=== PATIENT | male | born 1965 | race African-American/Black ===

== ENCOUNTER → 2020-05-22 12:29 | Outpatient (BNVA) | payer SELFPAY | PROVIDERS: PCP Internal Medicine; Referring Provider Internal Medicine; Visit Provider Internal Medicine Cardiovascular Disease | DX: I48.0 Paroxysmal atrial fibrillation (principal); I10 Essential (primary) hypertension; Z79.01 Long term (current) use of anticoagulants | CPT/HCPCS: 99214 ==

== ENCOUNTER → 2020-07-18 08:17 | Outpatient (BNVA) | payer BC, SELFPAY | PROVIDERS: PCP Internal Medicine; Referring Provider Internal Medicine; Visit Provider Nurse Practitioner Family | DX: Z13.89 Encounter for screening for other disorder (principal) ==

== ENCOUNTER → 2020-07-26 09:47 | Outpatient (REF) | payer BC, SELFPAY | LOC: HO.SL 09:47 | PROVIDERS: PCP Internal Medicine; Visit Provider Nurse Practitioner Family | DX: G47.33 Obstructive sleep apnea (adult) (pediatric) (principal); E78.5 Hyperlipidemia, unspecified; I48.0 Paroxysmal atrial fibrillation | CPT/HCPCS: 95806 ==

== ENCOUNTER → 2020-09-12 10:59 | Outpatient (BNVA) | payer BC, SELFPAY | PROVIDERS: PCP Internal Medicine; Visit Provider Nurse Practitioner Family ==

== ENCOUNTER → 2020-12-07 09:11 | Outpatient (BNVA) | payer BC, SELFPAY | PROVIDERS: PCP Internal Medicine; Visit Provider Internal Medicine Cardiovascular Disease | DX: I48.0 Paroxysmal atrial fibrillation (principal); I10 Essential (primary) hypertension | CPT/HCPCS: 93005 ==

== ENCOUNTER → 2021-02-13 10:47 | Outpatient (BNVA) | payer BC, SELFPAY | PROVIDERS: PCP Internal Medicine; Visit Provider Nurse Practitioner Family ==

== ENCOUNTER → 2021-05-10 15:21 | Outpatient (BNVA) | payer SELFPAY | PROVIDERS: PCP Internal Medicine; Visit Provider Internal Medicine | DX: Z02.79 Encounter for issue of other medical certificate (principal) ==

== ENCOUNTER → 2021-06-13 15:13 | Outpatient (BNVA) | payer BC, SELFPAY | PROVIDERS: PCP Internal Medicine; Visit Provider Internal Medicine Cardiovascular Disease ==

== ENCOUNTER → 2021-09-11 14:07 | Outpatient (BNVA) | payer BC, SELFPAY | PROVIDERS: PCP Internal Medicine; Visit Provider Surgery ==

== ENCOUNTER 2021-10-11 13:46 | Outpatient (REF) | payer BC, SELFPAY ==
[2021-10-11 13:58] VITALS: BMI 37.7
[2021-10-11 14:00] VITALS: BP 151/88; PULSE 71; RESP 16; TEMP 37.1; O2SAT 97
[2021-10-11 14:40] VITALS: BP 129/85; PULSE 79; RESP 16; O2SAT 97
--- NOTE | 2021-10-12 11:04 | P.OP_ITS ---
Operative Note Operative Note Date of Service: 10/12/21 Narrative: Preoperative diagnosis: Lipoma posterior right leg Postoperative diagnosis: Same Procedure: Excision of lipoma posterior right leg Surgeon: Ray Finney MD Agricultural Sciences Professor: No physician Anesthesia: Local Indications for procedure: Enlarging soft tissue mass of the posterior right leg suggestive of a lipoma Operative findings: Large lipoma measuring approximately 6 cm in diameter. Specimen: Lipoma right posterior leg Estimated blood loss: 5 mL Complications: None Procedure details: Patient was brought to the minor surgery suite placed in a prone position. The site of surgery was confirmed by the patient in the posterior right leg. After assuring informed consent, the skin was prepped with Betadine and draped in a sterile fashion. Local anesthesia was then infiltrated around the lipoma. An oblique incision was made directly over the lipoma along the natural skin creases. Incision was carried down to the lipoma. Sharp dissection was used to excise the lipoma circumferentially. The lesion was passed off the table and sent to pathology for further examination. After assuring adequate hemostasis dermis was reapproximated using interrupted 3-0 Polysorb sutures. Skin was closed using a running subcuticular 4-0 Polysorb suture. Steri-Strips 2 x 2 gauze and Tegaderm were then applied. The patient tolerated the procedure well. He was discharged to home in stable condition.
== END 2021-10-11 13:47 | disposition home or self-care (01) ==
LOC: HO.MS 13:46
PROVIDERS: PCP Internal Medicine; Visit Provider Surgery
PROC: (CPT 11406; principal; 2021-10-11 14:00)
DX: D17.23 Benign lipomatous neoplasm of skin and subcutaneous tissue of right leg (principal)
CPT/HCPCS: 11406; 88304

== ENCOUNTER → 2021-10-18 16:12 | Outpatient (BNVA) | payer BC, SELFPAY | PROVIDERS: PCP Internal Medicine; Visit Provider Surgery | DX: Z13.89 Encounter for screening for other disorder (principal) ==

== ENCOUNTER → 2022-04-22 09:19 | Outpatient (BNVA) | payer SELFPAY | PROVIDERS: PCP Internal Medicine; Visit Provider Physician Assistant Medical | DX: Z02.79 Encounter for issue of other medical certificate (principal) ==

== ENCOUNTER → 2022-06-17 15:31 | Outpatient (BNVA) | payer BC, SELFPAY | PROVIDERS: PCP Internal Medicine; Visit Provider Internal Medicine Cardiovascular Disease | DX: R94.31 Abnormal electrocardiogram [ECG] [EKG] (principal) | CPT/HCPCS: 93005; 99212 ==

== ENCOUNTER → 2023-04-18 12:08 | Outpatient (BNVA) | payer SELFPAY | PROVIDERS: PCP Internal Medicine; Visit Provider Internal Medicine | DX: Z02.79 Encounter for issue of other medical certificate (principal) ==

== ENCOUNTER 2023-07-02 11:06 | Outpatient (AMB) | payer BC, SELFPAY ==
--- NOTE | 2023-07-02 11:09 | A.OFFVIS_ITS ---
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 He is status post cardioversion. He was referred for ablation but given significant improvement In symptoms and ejection fraction after cardioversion, ablation was not considered. He has been taken off the amiodarone in the past. He was taken off the Eliquis by the electrophysiology team. Previously was referred to sleep.? He was noticed to have mild sleep apnea.? He had decided to undergo weight loss rather than using CPAP. He has been doing well.? He denies any shortness of breath.? No palpitations.? Blood pressure control is good.? He has been off Lasix. Complained of 1 episode of chest pain few weeks ago. He said it was a like a pinching sensation on the right her chest at rest. He works [place] the [place] and lifts heavy weights her leg age and has no symptoms at work. 07/02/2023: He returns for follow-up. Matt stanton has been doing well. Blood pressure in the office is elevated. He previously had sleep apnea but he is saying that he lost weight and was told that his sleep apnea is improved. He has been experiencing headaches in the morning every day. He is getting workup for that. No palpitations. EKG in the office is showing sinus rhythm. [facility] Medical History Hyperlipidemia Hypertension Surgical History History of cardioversion (01/26/19) History of vasectomy (01/13/14) History of colonoscopy History of nasal polypectomy Hx of cholecystectomy (07/16/04) Hx of arthroscopy of knee Family History Father No problems noted. Mother No problems noted. Brother Cardiomyopathy Social History Alcohol intake: never Patient Tobacco Use Status: Never used Tobacco Review of Systems Const Denies chills, Denies fatigue, Denies fever(s), Denies frequent falls, Denies weakness, Denies weight gain and Denies weight loss ENT Denies dizziness Card Denies chest pain, Denies leg edema, Denies lightheadedness, Denies palpitations, Denies dyspnea, Denies dyspnea on exertion, Denies orthopnea and Denies other (loss of consciousness) Resp Denies cough, Denies dyspnea and Denies dyspnea on exertion GI Denies hematochezia and Denies change in stool character Musc Denies abnormal gait, Denies muscle weakness, Denies numbness, Denies radiating pain into limb and Denies tingling Neuro Denies abnormal gait, Denies dizziness, Denies frequent falls, Denies numbness, Denies tingling and Denies weakness Endo Denies fatigue and Denies palpitations Physical Exam Vital Signs: Last Vital Signs Pulse 69 07/02/23 11:22 BP 140/80 H 07/02/23 11:22 BMI result Body Mass Index 37.0 GENERAL APPEARANCE: in no acute distress, well developed, well nourished. NECK/THYROID: no carotid bruit, no jugular venous distention. SKIN: no suspicious lesions, warm and dry. HEART: no murmurs, regular rate and rhythm, S1, S2 normal. LUNGS: clear to auscultation bilaterally. ABDOMEN: normal, bowel sounds present, soft, nontender, nondistended. EXTREMITIES: no clubbing, cyanosis, or edema. PERIPHERAL PULSES: equal. NEUROLOGIC: nonfocal, alert and oriented. PSYCH: mood/affect full range. Office Procedures EKG Details: Sinus rhythm 69 beats per minute, possible left atrial enlargement, borderline ECG, QTC 402 milliseconds. [id number], Complete Assessment & Plan Assessment & Plan (1) PAF (paroxysmal atrial fibrillation): Code(s): I48.0 - Paroxysmal atrial fibrillation (2) Hyperlipidemia: Code(s): E78.5 - Hyperlipidemia, unspecified (3) Hypertension: Code(s): I10 - Essential (primary) hypertension Plan Pleasant 58-year-old gentleman who is here for follow-up. He has background of paroxysmal atrial fibrillation. He was cardioverted and since then has not developed any further episodes of atrial fibrillation. Blood pressure is elevated. He is currently taking lisinopril 5 mg and Toprol- XL 25 mg daily. Increasing lisinopril to 10 mg daily. Will bring him back in few weeks for blood pressure check with the nurse. If blood pressure continues to be elevated then will titrate lisinopril further. Given frequent headaches with no obvious cause and hypertension along with obesity/snoring. I am referring him to Sleep Medicine for further assessment as he previously had keep apnea but but Ma loss he was told that he does not need CPAP mask. We will check fasting lipid panel for his background of hyperlipidemia. Thank you for allowing me to participate in the care of your patient. Please feel free to contact me if you have any questions. Orders: Orders Lipid Panel Today E78.5 - Hyperlipidemia, unspecified Referrals Sleep Medicine Referral G47.33 - Obstructive sleep apnea (adult) (pediatric) Medications: New lisinopril 10 mg PO DAILY 90 tabs 3RF Discontinued lisinopril Discontinued Reason: Doctor's Order 5 mg PO DAILY 90 tabs 3RF Coding Level of Care Code Est Pt Level 4 (78934) Diagnoses PAF (paroxysmal atrial fibrillation) I48.0 Hyperlipidemia E78.5 Hypertension I10 CPT Codes EKG - CPT: 23423-[id number], Complete ([id number])
[2023-07-02 11:22] VITALS: BP 140/80; PULSE 69; BMI 37.0
== END 2023-07-02 11:57 | disposition home or self-care (01) ==
PROVIDERS: PCP Nurse Practitioner Family; Visit Provider Internal Medicine Cardiovascular Disease
DX: I48.0 Paroxysmal atrial fibrillation (principal); E78.5 Hyperlipidemia, unspecified; I10 Essential (primary) hypertension
CPT/HCPCS: 93010; 99214

== ENCOUNTER → 2023-07-02 11:06 | Outpatient (BNVA) | payer BC, SELFPAY | PROVIDERS: PCP Nurse Practitioner Family; Visit Provider Internal Medicine Cardiovascular Disease | DX: I48.0 Paroxysmal atrial fibrillation (principal); E78.5 Hyperlipidemia, unspecified; I10 Essential (primary) hypertension; Z79.899 Other long term (current) drug therapy | CPT/HCPCS: 93005 ==

== ENCOUNTER 2023-07-07 10:36 | Outpatient (REF) | payer BC, SELFPAY ==
[2023-07-07 12:14] LABS: Cholesterol 213 mg/dL (<200); HDL Cholesterol 42 mg/dL (>40); LDL Cholesterol Calculated 157 mg/dL (<100); Triglycerides 72 mg/dL (<150)
== END 2023-07-07 10:37 | disposition home or self-care (01) ==
LOC: HO.LAB 10:36
PROVIDERS: Visit Provider Internal Medicine Cardiovascular Disease
DX: E78.5 Hyperlipidemia, unspecified (principal)
CPT/HCPCS: 36415; 80061

== ENCOUNTER → 2023-07-16 15:32 | Outpatient (BNVA) | payer BC, SELFPAY | PROVIDERS: PCP Nurse Practitioner Family; Visit Provider Internal Medicine Cardiovascular Disease ==

== ENCOUNTER 2023-10-14 12:54 | Outpatient (AMB) | payer BC, SELFPAY ==
--- NOTE | 2023-10-14 13:04 | MHC.OFFVIS ---
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 Having trouble sleeping. Allergies No Known Allergies [No Known Allergies*] Allergy (Verified 10/14/23 13:11) HPI HPI Comments History of Present Illness Details 58 y/o male patient with mhx of HTN, and afib presents for sleep consultation. Pt reports he was diagnosed with HENRY about 15 years. He was treated with CPAP, but stopped using CPAP after lost 30 lb. He had a repeat sleep study done in 2020 and the result was mild degree of sleep apnea. Pt continues to endorse snoring, nocturia, non refreshing sleep with daytime tiredness. Pt reports irregular sleep schedule due to work schedule. 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 Sleep questionnaire: Have you ever been diagnosed with a sleep disorder? Yes, HENRY. Have you ever had a sleep study in the past? Yes. Have you ever been treated for a sleep disorder? Yes, CPAP. Do you take medications for a sleep disorder? No. Do you snore? Yes. Do you wake up gasping at night? No. Do you have episodes of apneas? Yes. If yes, are they witnessed? Yes. Do you have episodes of nocturnal chest pain or dyspnea? Can have palpitation, but not often. Do you have difficulty initiating sleep? No. Do you have difficulty maintaining sleep? Yes, 4-6 hrs. Do you wake up tired? Yes. Do you have headaches upon awakening? Occasionally. Do you wake up with dry mouth or throat? No. Do you have GERD? No. Do you have nocturia? Yes. Do you have nocturnal leg cramps? No. Do you have symptoms of restless legs? Once in a while. Do you act out your dreams? No. Sleep hygiene questionnaire: What is your usual sleep routine? Usual bedtime is at 8:30- 9 pm; Usual wakeup time is at 2-4 am. Do you take naps? Yes. Is your sleep environment cool, dark, and quiet? Yes. Do you exercise? Not now. Do you take caffeine or other stimulants? Not everyday. Do you use electronics in bed? Yes, sometimes. What is your work schedule? 4 am to 11 am. Hypersomnolence questionnaire: Do you have daytime tiredness or fatigue? Yes. Do you easily fall asleep when inactive? Not normally. Have you ever had episodes of sudden weakness? No. Have you ever had episodes of sudden weakness associated with strong emotions? No. PFSH Medical History Hyperlipidemia Hypertension Surgical History History of cardioversion (01/26/19) History of vasectomy (01/13/14) History of colonoscopy History of nasal polypectomy Hx of cholecystectomy (07/16/04) Hx of arthroscopy of knee Family History Father No problems noted. Mother No problems noted. Brother Cardiomyopathy Social History Alcohol intake: never Patient Tobacco Use Status: Never used Tobacco Review of Systems Const All systems reviewed & are unremarkable except as noted in HPI and below Physical Exam Vital Signs: Last Vital Signs Pulse 64 10/14/23 13:11 BP 134/80 10/14/23 13:11 Pulse Ox 94 10/14/23 13:11 Oxygen Delivery Method Room Air 10/14/23 13:11 BMI result Body Mass Index 37.1 Const General: cooperative and tired appearing Nutritional Appearance: obese Orientation/consciousness: patient oriented x3 Limitations: no limitations Neck Neck: Yes full ROM and Yes supple Resp Effort & Inspection: normal respiratory effort and able to speak in complete sentences Neuro General: patient oriented x3, gait normal and moves all extremities Cranial nerves: Yes CN's II-XII intact bilaterally Cognition (Neuro): normal cognition Gait exam (Neuro): Normal gait present Motor exam (neuro): 5/5 motor strength present throughout Psych Appearance: grossly normal Mental Status: mental status grossly normal Speech and movement: Normal speech and movement present Affect: normal affect Attitude: cooperative Assessment & Plan Assessment & Plan (1) Obstructive sleep apnea: Comment: HST (07/26/20 at [facility] [place]) AHI 9.7/hr, O2 edna 86%. Code(s): G47.33 - Obstructive sleep apnea (adult) (pediatric) (2) Daytime sleepiness: Code(s): R40.0 - Somnolence Plan Pt is advised to undergo home sleep study to assess for sleep apnea. Will f/u with pt after study to discuss results and appropriate treatment options. Pt to call with any worsening concerns or questions. Orders: Orders RT home sleep study Today G47.33 - Obstructive sleep apnea (adult) (pediatric), I48.0 - Paroxysmal atrial fibrillation Coding Level of Care Code New Pt Level 3 (98632) Diagnoses Obstructive sleep apnea G47.33 Daytime sleepiness R40.0
[2023-10-14 13:11] VITALS: BP 134/80; PULSE 64; O2SAT 94; BMI 37.1
== END 2023-10-14 13:36 | disposition home or self-care (01) ==
LOC: HO.HSMS 12:55
PROVIDERS: PCP Nurse Practitioner Family; Visit Provider Nurse Practitioner Family
DX: G47.33 Obstructive sleep apnea (adult) (pediatric) (principal); R40.0 Somnolence
CPT/HCPCS: 99203

== ENCOUNTER → 2023-10-14 12:54 | Outpatient (BNVA) | payer BC, SELFPAY | PROVIDERS: PCP Nurse Practitioner Family; Visit Provider Nurse Practitioner Family ==

== ENCOUNTER → 2023-11-25 15:56 | Outpatient (REF) | payer BC, SELFPAY ==
--- NOTE | 2023-11-25 15:59 | HM_ITS ---
Conclusion: 1. Patient was monitored for total period of 3 days 2. Baseline was normal sinus rhythm with average heart of 76 beats per minute 3. No significant pauses noted 4. Occasional PACs noted with total burden of 0.4% 5. 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
--- NOTE | 2023-11-25 15:59 | ECG_ITS ---
Test Reason : paf Blood Pressure : / mmHG Vent. Rate : 062 BPM Atrial Rate : 062 BPM P-R Int : 202 ms QRS Dur : 092 ms QT Int : 410 ms P-R-T Axes : 059 049 032 degrees QTc Int : 416 ms Normal sinus rhythm Possible Left atrial enlargement Borderline ECG When compared with ECG of 27-JAN-2019 06:45, Nonspecific T wave abnormality no longer evident in Anterior leads QT has shortened Referred By: Jluis Bishop Electronically Signed By:HENRIETTA BENITES MD
== END ==
LOC: HO.CARD 15:56
PROVIDERS: Visit Provider Nurse Practitioner Family
DX: I48.0 Paroxysmal atrial fibrillation (principal); G47.33 Obstructive sleep apnea (adult) (pediatric); E78.5 Hyperlipidemia, unspecified
CPT/HCPCS: 93005; 93242

== ENCOUNTER → 2023-11-25 15:59 | Outpatient (BNV) | payer BC, SELFPAY | PROVIDERS: Visit Provider Internal Medicine Cardiovascular Disease | DX: I49.1 Atrial premature depolarization (principal) | CPT/HCPCS: 93010; 93244 ==

== ENCOUNTER 2023-12-08 10:53 | Outpatient (AMB) | payer BC, SELFPAY ==
--- NOTE | 2023-12-08 11:00 | A.OFFVIS_ITS ---
Vital Signs 12/08/23 11:07 Height 6 ft 7 in Weight 327 lb 6 oz BMI 36.9 BP 142/80 H Blood Pressure Location Rt brachial Position Sitting Pulse 59 Pulse Source Pulse Oximeter Pulse Oximetry (%) 98 Oxygen Delivery Method Room Air Intake Visit Reasons: follow up HENRY - Conf w/address Intake Note: Patient presents for f/u HENRY. Allergies No Known Allergies [No Known Allergies*] Allergy (Verified 12/08/23 11:05) Medication List - Last Reconciled 12/08/23 by ORESTES Delgadillo lisinopril 10 mg PO DAILY metoprolol succinate ER 25 mg PO DAILY rosuvastatin 40 mg PO DAILY sildenafil 100 mg PO DAILY PRN HPI Comments Details: 58-yr-old male presents for f/u visit. Pt denies any significant interval medical changes. Pt has HST, which showed He still have episodes of snoring, SOB and chest pain at nights. He had polyps removed about 10 yrs ago. He wakes up with headache frequently. His headaches are mild-moderate, but can be a monster frontal pressure, if more severe throbbing a/w photophobia, phonophobia. Takes Excedrin migraine- sometimes works, sometimes does not help. The headache was daily, but since his Lisinopril was increased, the headaches are not daily. Has had 5 migraine days in the last month. He is trying to exercise more regularly. 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 [facility] Medical History Hyperlipidemia Hypertension Surgical History History of cardioversion (01/26/19) History of vasectomy (01/13/14) History of colonoscopy History of nasal polypectomy Hx of cholecystectomy (07/16/04) Hx of arthroscopy of knee Family History (Updated 12/08/23 @ 11:06 by Paulette Davidson CMA) Father Heart failure Mother No problems noted. Brother Cardiomyopathy Social History Alcohol intake: never Patient Tobacco Use Status: Never used Tobacco Physical Exam Vital Signs: Last Vital Signs Pulse 59 12/08/23 11:07 BP 142/80 H 12/08/23 11:07 Pulse Ox 98 12/08/23 11:07 Oxygen Delivery Method Room Air 12/08/23 11:07 BMI result Body Mass Index 36.9 Const General: cooperative and no acute distress Orientation/consciousness: patient oriented x3 Resp Effort & Inspection: normal respiratory effort and able to speak in complete sentences Neuro General: patient oriented x3 Cranial nerves: Yes CN's II-XII intact bilaterally Cognition (Neuro): normal cognition Psych Appearance: grossly normal Mental Status: mental status grossly normal Speech and movement: Normal speech and movement present Affect: normal affect Attitude: cooperative Assessment & Plan Assessment & Plan (1) Obstructive sleep apnea: Comment: HST (07/26/20 at [facility] [place]) AHI 9.7/hr, O2 edna 86%. HST (11/25/2023) AHI 12.1/hr w/ O2 edna 76%. Code(s): G47.33 - Obstructive sleep apnea (adult) (pediatric) Category: Medical (2) Migraine without aura: Code(s): G43.009 - Migraine without aura, not intractable, without status migrainosus Category: Medical Plan Reviewed HST, showed AHI 12.1/hr w/ O2 edna 76% (SpO2 < 90% x's 12.7 min and < 88% x's 7.2 min of a 262 min study). Pt advsied to start APAP 5-20 cmH2O w/ EPR 3- use nightly > 4 hrs- in hopes this reduces episodes of nocturnal snoring, SOB, chest pains. Pt would prefer to use a nasal pillow type mask. For acute migraine transport: Start Nurtec ODT 75mg qd prn. Minimize Excedrin use. Acute migraine tx contraindications- All triptans d/t paroxysmal A-fib, HTN, HLD. For migraine prevention: Continue Lisinopril and Amlodipine- per Cardiology. f/u in 6 months or sooner prn. Medications: New rimegepant (Nurtec ODT) 75 mg PO ONCE 30 days PRN 16 tabs 3RF migraine headache MDD 1 tab Coding Level of Care Code Est Pt Level 4 (52939) Diagnoses Obstructive sleep apnea G47.33 Migraine without aura G43.009
[2023-12-08 11:07] VITALS: BP 142/80; PULSE 59; O2SAT 98; BMI 36.9
== END 2023-12-08 11:55 | disposition home or self-care (01) ==
PROVIDERS: PCP Nurse Practitioner Family; Visit Provider Nurse Practitioner Family
DX: G47.33 Obstructive sleep apnea (adult) (pediatric) (principal); G43.009 Migraine without aura, not intractable, without status migrainosus
CPT/HCPCS: 99214

== ENCOUNTER → 2023-12-08 10:53 | Outpatient (BNVA) | payer BC, SELFPAY | PROVIDERS: PCP Nurse Practitioner Family; Visit Provider Nurse Practitioner Family | DX: G47.33 Obstructive sleep apnea (adult) (pediatric) (principal); I48.0 Paroxysmal atrial fibrillation ==

== ENCOUNTER 2024-06-30 10:20 | Outpatient (AMB) | payer BC, SELFPAY ==
[2024-06-30 10:21] VITALS: BP 140/70; PULSE 106; BMI 37.3
--- NOTE | 2024-06-30 10:21 | A.OFFVIS_ITS ---
Vital Signs 06/30/24 10:21 Height 6 ft 7 in Weight 331 lb 9.204 oz BMI 37.3 BP 140/70 H Blood Pressure Location Rt brachial Position Sitting Pulse 106 H Pulse Source Monitor Intake Visit Reasons: overdue f/up- possible Afib. 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 He is status post cardioversion. He was referred for ablation but given significant improvement In symptoms and ejection fraction after cardioversion, ablation was not considered. He has been taken off the amiodarone in the past. He was taken off the Eliquis by the electrophysiology team. Previously was referred to sleep.? He was noticed to have mild sleep apnea.? He had decided to undergo weight loss rather than using CPAP. He has been doing well.? He denies any shortness of breath.? No palpitations.? Blood pressure control is good.? He has been off Lasix. Complained of 1 episode of chest pain few weeks ago. He said it was a like a pinching sensation on the right her chest at rest. He works [place] the [place] and lifts heavy weights her leg age and has no symptoms at work. 07/02/2023: He returns for follow-up. He has been doing well. Blood pressure in the office is elevated. He previously had sleep apnea but he is saying that he lost weight and was told that his sleep apnea is improved. He has been experiencing headaches in the morning every day. He is getting workup for that. No palpitations. EKG in the office is showing sinus rhythm. 06/30/2024: He is here for follow-up. He has been feeling fatigued for 5 weeks. He apparently went to his primary care physician and EKG confirmed atrial fibrillation he was sent back to us. EKG in the office is showing atrial fibrillation. He is getting tired easily. Denying any shortness of breath. No PND or orthopnea. Currently not on anticoagulation. [facility] Medical History Hyperlipidemia Hypertension Surgical History History of cardioversion (01/26/19) History of vasectomy (01/13/14) History of colonoscopy History of nasal polypectomy Hx of cholecystectomy (07/16/04) Hx of arthroscopy of knee Family History Father Heart failure Mother No problems noted. Brother Cardiomyopathy Social History Alcohol intake: never Patient Tobacco Use Status: Never used Tobacco Review of Systems Const Denies chills, Denies fatigue, Denies fever(s), Denies frequent falls, Denies weakness, Denies weight gain and Denies weight loss ENT Denies dizziness Card Denies chest pain, Denies leg edema, Denies lightheadedness, Denies palpitations, Denies dyspnea and Denies dyspnea on exertion Resp Denies cough, Denies dyspnea and Denies dyspnea on exertion GI Denies hematochezia Musc Denies abnormal gait, Denies muscle weakness, Denies numbness, Denies radiating pain into limb and Denies tingling Neuro Denies abnormal gait, Denies dizziness, Denies frequent falls, Denies numbness, Denies tingling and Denies weakness Endo Denies fatigue and Denies palpitations Physical Exam Vital Signs: Last Vital Signs Pulse 106 H 06/30/24 10:21 BP 140/70 H 06/30/24 10:21 BMI result Body Mass Index 37.3 GENERAL APPEARANCE: in no acute distress, well developed, well nourished. NECK/THYROID: no carotid bruit, + jugular venous distention. SKIN: no suspicious lesions, warm and dry. HEART: no murmurs, irregular rate and rhythm, S1, S2 normal. LUNGS: clear to auscultation bilaterally. ABDOMEN: normal, bowel sounds present, soft, nontender, nondistended. EXTREMITIES: no clubbing, cyanosis, or edema. PERIPHERAL PULSES: equal. NEUROLOGIC: nonfocal, alert and oriented. PSYCH: mood/affect full range. Office Procedures EKG Details: Atrial fibrillation 106 beats per minute, rightward axis, QTC 456 milliseconds. [id number], Complete Assessment & Plan Assessment & Plan (1) PAF (paroxysmal atrial fibrillation): Code(s): I48.0 - Paroxysmal atrial fibrillation Category: Medical (2) Hypertension: Code(s): I10 - Essential (primary) hypertension Category: Medical Plan [age] year gentleman who is here for follow-up. He has known history of atrial fibrillation and tachycardia induced cardiomyopathy. Previously was cardioverted and was on amiodarone and anticoagulation and was referred to electrophysiology for ablation but given the fact that he was doing so well and had no recurrent atrial fibrillation episodes decision was made not to do ablation. His Eliquis was stopped. He was also taken off amiodarone. He had done well for few years and more recently started developing some fatigue and went to primary care physician where EKG confirmed atrial fibrillation. Clinically he appears to be mildly overloaded although he is denying any significant symptoms. He previously had cardiomyopathy when he developed atrial fibrillation. This is obviously a concern for him. I will arrange an urgent echocardiogram for him to assess LV function. Starting him on Eliquis 5 mg twice a day. Increasing metoprolol to 50 mg daily. Our plan will be to perform a CHRISTIANE cardioversion on him by next week. As he gets out of atrial fibrillation I will start him back on amiodarone and refer him back to electrophysiology for ablation. Thank you for allowing me to participate in the care of your patient. Please feel free to contact me if you have any questions. Orders: Orders CA echo transthoracic complete Today I48.0 - Paroxysmal atrial fibrillation Cardioversion with CHRISTIANE Today I48.0 - Paroxysmal atrial fibrillation CA echo transesophageal Today I48.0 - Paroxysmal atrial fibrillation Medications: New apixaban 5 mg PO BID 120 tabs 3RF Changed From metoprolol succinate ER 25 mg PO DAILY 90 tabs 2RF To metoprolol succinate ER 50 mg (2 x 25 mg) PO DAILY 90 tabs 2RF Coding Level of Care Code Est Pt Level 5 (25801) Diagnoses PAF (paroxysmal atrial fibrillation) I48.0 Hypertension I10 CPT Codes EKG - CPT: 67207-[id number], Complete ([id number])
== END 2024-06-30 11:27 | disposition home or self-care (01) ==
LOC: HO.HCS 10:20
PROVIDERS: PCP Nurse Practitioner Family; Visit Provider Internal Medicine Cardiovascular Disease
DX: I48.0 Paroxysmal atrial fibrillation (principal); I10 Essential (primary) hypertension; I51.89 Other ill-defined heart diseases
CPT/HCPCS: 93306; 99214

== ENCOUNTER → 2024-06-30 12:00 | Outpatient (REF) | payer BC, SELFPAY ==
--- NOTE | 2024-06-30 12:04 | CA_ITS ---
Transthoracic Echocardiogram Patient (Last, First, Middle): Byron Dorman A Gender: Male Date of : 1965 Age: 59 Procedure Date: 06/30/2024 Procedure Type: Transthoracic Echocardiogram Location: OP Height: 200.66 cm Weight: 147.87 kg BSA: 2.80 m2 Heart Rate: bpm BP: 154 / 88 mmHg Guest Relations Representative: AVILA Referring MD: Jluis Bishop MD Executive Kitchen Manager: Jluis Bishop MD Symptoms: I48.0 - Paroxysmal atrial fibrillation Study Quality: Fair, contrast Conclusions: - Mildly increased left ventricular cavity size. There is moderately increased left ventricular wall thickness. The left ventricular systolic function is moderate to severely decreased. The visually estimated ejection fraction is between 25-30%. - Normal right ventricular cavity size. There is low normal right ventricular systolic function. - The left atrium is severely dilated. Findings Procedure Information Contrast agent, definity, is being given per protocol without apparent complications. Left Ventricle Mildly increased left ventricular cavity size. There is moderately increased left ventricular wall thickness. The left ventricular systolic function is moderate to severely decreased. The visually estimated ejection fraction is between 25-30%. There is moderate global hypokinesis. Diastolic function is indeterminate on the basis of available data. Elevated filling pressures. Right Ventricle Normal right ventricular cavity size. There is low normal right ventricular systolic function. Atria The left atrium is severely dilated. The right atrium is moderately dilated. Aortic Valve Normal aortic valve structure and function. There is no aortic valve stenosis. There is no aortic valve regurgitation. Mitral Valve The mitral valve appears normal. There is trace mitral valve regurgitation. There is no mitral valve stenosis. Pulmonic Valve The pulmonic valve is normal. There is trace pulmonic valve regurgitation. Tricuspid Valve Normal tricuspid valve structure. There is trace tricuspid valve regurgitation. The right ventricular systolic pressure is 17 mmHg. Moderately elevated right atrial pressure. There is no evidence of pulmonary hypertension. Great Vessels All visible segments of the aorta are normal in size. The visualized portions of the pulmonary artery and branches are normal. Venous The inferior vena cava is dilated and collapses greater than 50% with inspiration. Pericardium/Pleural There is no evidence of pericardial effusion. Prior Study Comparison No prior study available for comparison. Measurements 2D Linear Measurements IVSd: 1.69 0.6-0.9/0.6-1.0 cm LVIDd: 6.16 3.9-5.3/4.2-5.9 cm LVIDd Index: 2.20 2.4-3.2/2.2-3.1 cm/m2 LVIDs: 5.00 2.0-3.6 cm LVPWd: 1.49 0.7-1.1 cm LA Diam: 4.50 2.7-3.8/3.0-4.0 cm LAIDs Index: 1.61 1.5-2.3 cm/m2 LV Mass: 604.28 67-162/88-224 g LV Mass Index: 215.81 43-95/49-115 g/m2 LVOT Diam: 2.50 3.0+(-)1.3 cm 2D Systolic Function EF 4C: 30.30 >55% EF 2C: 21.70 >55% EF BiP: 25.60 >55% Mitral Valve MV Pk E: 1.09 MV Decel Time: 183.00 E'Lateral: 7.78 E'Medial: 5.62 E/E' Med: 19.40 E/E' Lat: 14.00 PHT: 53.00 MVA PHT: 4.15 Decel [place]: 6.28 Aortic Valve AoV Pk Joaquin: 0.97 AoV Mn Joaquin: 0.71 AoV VTI: 0.19 AoV Pk Grad: 4.00 Aov Mn Grad: 2.00 TRESA Cont.VTI: 3.96 LVOT LVOT Pk Joaquin: 0.77 LVOT Mn Joaquin: 0.50 LVOT VTI: 0.15 LVOT Pk Grad: 2.00 LVOT Mn Grad: 1.00 LVOT Diam: 2.50 LVOT Area: 4.91 Diastolic Function MV Pk E: 1.09 E'Medial: 5.62 E/E' Med: 19.40 E' Laterial: 7.78 E/E' Lat: 14.00 Right Ventricle TAPSE (mm): 18.70 TVS' Joaquin: 8.63 Tricuspid Valve TR Pk Joaquin: 1.49 TR Pk Grad: 9.00 RA Press: 8.00 RVSP: 17.00 Great Vessels Aorta Sinus of Valsalva: 3.63 2.0-3.[address] [place]: 2.57 1.7-3.4 cm Ao Asc: 3.50 2.1-3.4 cm Updated in Other Vendor System with Status of Final Jluis Bishop MD electronically signed on 06/30/2024 4:01:03 PM with status of Final
== END ==
LOC: HO.CARD 12:00
PROVIDERS: Visit Provider Internal Medicine Cardiovascular Disease
DX: I48.0 Paroxysmal atrial fibrillation (principal)
CPT/HCPCS: 93306; Q9957

== ENCOUNTER 2024-07-08 10:27 | Day surgery (SDC) | payer BC, SELFPAY ==
--- NOTE | 2024-07-08 | ECG_ITS ---
Test Reason : post cardioversion Blood Pressure : / mmHG Vent. Rate : 065 BPM Atrial Rate : 065 BPM P-R Int : 196 ms QRS Dur : 094 ms QT Int : 460 ms P-R-T Axes : 057 075 056 degrees QTc Int : 478 ms Normal sinus rhythm Septal infarct , age undetermined Abnormal ECG When compared with ECG of 25-NOV-2023 16:01, Septal infarct is now Present QT has lengthened Referred By: Jluis Bishop Electronically Signed By:Jluis Bishop
[2024-07-08 11:00] VITALS: BMI 36.7
[2024-07-08 11:02] VITALS: BP 154/106; PULSE 76; RESP 16; TEMP 36.5; O2SAT 98
--- NOTE | 2024-07-08 11:51 | HO.ANESPROP2 ---
HPI - Anesthesia Eval Consult details Narrative: 59 yo male patient for CHRISTIANE PMFSH Active Problems Active Problems: All Active Problems Migraine without aura (Acute) Daytime sleepiness (Acute) Lipoma (Acute) PAF (paroxysmal atrial fibrillation) (Acute). Cardioversion in the past several years ago. Had been scheduked for ablation but this was cancelled because of non- recurrence of afib Hypertension (Acute) Hyperlipidemia (Acute) Obstructive sleep apnea (Acute). Unable to tolerate CPAP Cardiomyopathy. EF 25-30% Recurrence of afib with symptoms of fatigue. No SOB, no palpitations Past Medical History Medical History Hyperlipidemia Hypertension Family History Family History Father Heart failure Mother No problems noted. Brother Cardiomyopathy Family history of problems with anesthesia: No Surgical History Surgical History History of cardioversion (01/26/19) History of vasectomy (01/13/14) History of colonoscopy History of nasal polypectomy Hx of cholecystectomy (07/16/04) Hx of arthroscopy of knee History of Problems with Anesthesia: No Social History Social History Alcohol intake: never Patient Tobacco Use Status: Never used Tobacco Use of substances other than those prescribed or required for medical reasons: No Are you DNR?: No Advance Directives: No Advance Directives Information Provided: Yes Meds Allergies Allergy/AdvReac Type Severity Reaction Status Date / Time No Known Allergies Allergy Verified 07/08/24 10:59 [No Known Allergies*] Home Medications ?Medication ?Instructions ?Recorded ?Confirmed ?Last Taken ?Type sildenafil 100 mg tablet 100 mg PO DAILY PRN Edema 06/17/22 07/08/24 Unknown History Exam Height,Weight and Vital Signs: Height 6 ft 7 in Weight 147.871 kg Last Vital Signs Temp 97.7 F 07/08/24 11:02 Pulse 76 07/08/24 11:02 Resp 16 07/08/24 11:02 BP 154/106 H 07/08/24 11:02 Pulse Ox 98 07/08/24 11:02 O2 Del Method Room Air 07/08/24 11:02 Airway Mallampati Class: II TM Dist: >3cm Neck ROM: Full Loose/Missing/Broken Teeth: Yes (Broken tooth bottom left, missing some teeth back. Denies loose teeth) Heart: Irregularly irregular Lungs: CTAB Assessment and Plan Assessment Anesthesia Assessment: Anesthesia Plan Discussed and Chart Reviewed Final Anesthetic Review Family History of Problems with Anesthesia: No History of Problems with Anesthesia: No NPO: Yes ASA Class: III and IV Final Preanesthetic Review: No Changes in Pt Med Stat, Meds/Allgs Chart Reviewed, Consent Obtained/Reviewed and Anes Risks/Benef Reviewed Patient Risk: Intermediate Procedure Risk: Intermediate Assessment/Block/Sedation in SS: Assess/Block/Sedation-SS Anesthetic Plan Anesthetic Plan: MAC: Disposition: Standard PACU
--- NOTE | 2024-07-08 12:05 | CA_ITS ---
Transesophageal Echocardiogram Patient (Last, First, Middle): Byron Dorman A Gender: Male Date of : 1965 Age: 59 Procedure Date: 07/08/2024 Procedure Type: Transesophageal Echocardiogram Location: OP Height: 201. cm Weight: 147.87 kg BSA: 2.81 m2 Heart Rate: bpm BP: 134 / 103 mmHg Roving Sizer: GORGE Lopez MD: Jluis Bishop MD Textile Coating Machine Operator: Jluis Bishop MD Symptoms: I48.0 - Paroxysmal atrial fibrillation Conclusion: ??? Normal left ventricular cavity size. The left ventricular systolic function is moderate to severely decreased. The visually estimated ejection fraction is between 25-30%. There is moderate global hypokinesis. ??? Normal right ventricular cavity size and systolic function. ??? There is no evidence of a thrombus in the left atrial appendage. Findings Procedure Information Consent was obtained prior to the procedure. The adult 3D probe was passed with no difficulty. This was a technically good study. Left Ventricle Normal left ventricular cavity size. The left ventricular systolic function is moderate to severely decreased. The visually estimated ejection fraction is between 25-30%. There is moderate global hypokinesis. Right Ventricle Normal right ventricular cavity size and systolic function. Atria There is no evidence of a thrombus in the left atrial appendage. LA is dilated. Aortic Valve There is a normal trileaflet aortic valve. There is no aortic valve stenosis. There is no aortic valve regurgitation. Mitral Valve The mitral valve appears normal. There is no mitral valve regurgitation. There is no mitral valve stenosis. Pulmonic Valve The pulmonic valve was not well visualized. Tricuspid Valve Normal tricuspid valve structure. There is trace tricuspid valve regurgitation. Great Vessels There is no evidence of plaque in the aorta. Pericardium/Pleural There is no evidence of pericardial effusion. Updated by Jluis Bishop on 05:42 PM with Status of Final Jluis Bishop MD electronically signed on 07/10/2024 5:42:42 PM with status of Final
--- NOTE | 2024-07-08 12:21 | MHC.SHP ---
Pre-Procedural Eval Section A - 24 Hr Update-Section A only Date of Service: 07/08/24 The patient is an INPATIENT: No The patient has been examined within 24 hours of the surgical procedure. The History & Physical has been completed within 30 days and I have reviewed it.: Yes Section B - Complete if H&P > 30 days Chief Complaint: Paroxysmal atrial fibrillation Allergies: Allergies Allergy/AdvReac Type Severity Reaction Status Date / Time No Known Allergies Allergy Verified 07/08/24 10:59 [No Known Allergies*] Plan Diagnosis/Plan: Unchanged I have reviewed the history and physical and performed a pertinent physical examination on my patient. No changes have occurred unless specified. Time Spent With Patient Time: Total time managing care of this patient today ____ minutes.
[2024-07-08 13:03] VITALS: BP 130/81; PULSE 68; RESP 12; TEMP 36.4; O2SAT 96
--- NOTE | 2024-07-08 13:12 | HO.CARDIVERS ---
Cardioversion Procedure Note Cardioversion Date of Procedure: 07/08/24 Ordering Provider: Jluis Bishop Performing Provider: Jluis Bishop Indication for Procedure: Afib, cardiomyopathy Performed with Transesophageal Echo: Yes CHRISTIANE findings (if CHRISTIANE Performed): No LA/MEGAN thrombus Consent: Verbal and Written consent was obtained from the patient before starting. The patient was made aware of the risk of stroke, arrhythmia, skin irritation Procedure: After consent obtained, defib pads were attached and the patient was sedated by the anesthesia team. Once adequate sedation achieved, single synchronized shock of 200 J was given and the patient converted to sinus rhythm. Complications: None Recommendations: c/w amiodarone and Eliquis. Referral to EP for ablation.
[2024-07-08 13:18] VITALS: BP 121/82; PULSE 64; RESP 16; O2SAT 98
[2024-07-08 13:33] VITALS: BP 124/73; PULSE 62; RESP 16; TEMP 36.2; O2SAT 98
--- OUTSIDE RECORDS SUMMARY | 2024-07-14 01:36 | XMS_ITS | Continuity of Care Document ---
Author Organization [facility] Adult Address [address] [place] [id number]- Care Team Providers Care Infection Control Specialist Name Role Phone Elisa ARCHULETA, Keira Robles Primary Care [id number] Date(s): 06/25/24 - 07/02/[address] [address]- Encounter Diagnosis Atrial fibrillation status post cardioversion(Discharge Diagnosis) - 06/25/24 SOB (shortness of breath)(Discharge Diagnosis) - 06/25/24 Attending Physician: Not on Staff, Attending MD Referring Physician: Keira Fischer Encounter Type: Office Visit Allergies, Adverse Reactions, Alerts No Known Allergies Immunizations Given and Recorded Vaccine Date Status Refusal Reason zoster vaccine, inactivated 10/18/23 Recorded SARS-CoV-2 (COVID-19) mRNA-1273 vaccine 08/06/21 R ecorded SARS-CoV-2 (COVID-19) mRNA-1273 vaccine 10/18/20 R ecorded SARS-CoV-2 (COVID-19) mRNA-1273 vaccine 09/20/20 R ecorded tetanus/diphtheria/pertussis, acel(Tdap) 1 04/17/20 Given tetanus/diphtheria/pertussis, acel(Tdap) 12/05/17 Recorded tetanus/diphtheria/pertussis, acel(Tdap) 04/20/10 Given diphtheria-tetanus toxoids (DT) 08/04/97 Given 1Result Comment: [facility] [id number] Medications Cialis 10 mg oral tablet 1 tablet = 10 mg, By Mouth, Daily, 1 hour before sexual activity, # 5 tablet, 7 Refills, Maintenance, 03/12/24 3:08:00 PM EDT, Tablet, [facility]/pharmacy #[id number], Partial fill upon patient request if the prescription is for a schedule II opioid drug., 200, cm, 03/12/24 14:52:00 EDT, Height Start Date: 03/12/24 Status: Ordered Quantity: 5.0 Unit: tablet Repeat number: 8 ipratropium nasal 21 mcg/inh spray 2 sprays = 42 mcg, Nares, Both, 3 times a day, # 1 each, 5 Refills, Maintenance, 04/18/21 2:09:00 PMEDT, [place], [facility]/pharmacy #[id number], 2 sprays Nares, Both 3 times a day, 197, cm, 04/18/21 13:44:00 EDT,Height, 147.6, kg, 04/18/21 13:46:00 EDT, Dry Weight Start Date: 04/18/21 Status: Ordered Quantity: 1.0 Unit: each Repeat number: 6 lisinopril 10 mg oral tablet 10 mg, 1, tablet, By Mouth, Daily, # 90 tablet, Refills 0, Maintenance, 09/12/23 10:29:00 AM EST, Partial fill upon patient request if the prescription is for a schedule II opioid drug. Start Date: 09/12/23 Status: Ordered Quantity: 90.0 Unit: tablet Repeat number: 1 metoprolol 25 mg oral tablet, extended release 25 mg, 1, tablet, By Mouth, Daily, # 30 tablet, Refills 0, Maintenance, 01/29/19 12:57:03 PM EDT Start Date: 01/29/19 Status: Ordered Quantity: 30.0 Unit: tablet Repeat number: 1 Nurtec ODT 75 mg oral tablet, disintegrating TAKE 1 TABLET BY MOUTH ONCE NEEDED FOR MIGRAINE. MAX DAILY DOSE: 1 TAB Start Date: 03/12/24 Status: Ordered Repeat number: 1 rosuvastatin 40 mg oral tablet 1 tablet = 40 mg, By Mouth, Daily, # 90 tablet, 0 Refills, Maintenance, 09/12/23 10:00:00 AM EST, Tablet, Partial fill upon patient request if the prescription is for a schedule II opioid drug. Start Date: 09/12/23 Status: Ordered Quantity: 90.0 Unit: tablet Repeat number: 1 Problem List Condition Confirmation Course Effective Dates Status H ealth Status Informant Atrial fibrillation status post cardioversion Confirmed Active Right epiretinal membrane Confirmed 03/04/17 Active Essential (primary) hypertension Confirmed 12/23/17 Active Hyperlipidemia NOS Confirmed Active Migraines Confirmed Active Obstructive sleep apnea AHI 28.2, O2 80% Confirmed 11/11/18 Active Severe obesity (BMI 35.0-39.9) with comorbidity Confirmed Active Diagnosis Diagnosis Type Effective Dates Health Status Clinical Service Informant Atrial fibrillation status post cardioversion Discharge Diagnosis 06/25/24 SOB (shortness of breath) Discharge Diagnosis 06/25/24 Vital Signs Most recent to oldest [Reference Range]: 1 Height 200 cm (06/25/24 10:19 AM) Weight 148.5 kg (06/25/24 10:19 AM) Oxygen Saturation [94-100 %] 100 % (06/25/24 10:19 AM) Pulse Rate [55-90 bpm] 77 bpm (06/25/24 10:19 AM) Body Mass Index [18.5-24.99 kg/m2] 37.13 kg/m2 *>HHI* (06/25/24 10:19 AM) Blood Pressure [90-138/55-84 mm Hg] 121/ 84mm Hg (06/25/24 10:19 AM) Mode of Delivery (Oxygen) Room air (06/25/24 10:19 AM) Blood pressure sites Arm, right (06/25/24 10:19 AM) Weight Obtained Via Standing scale (06/25/24 10:19 AM) Social History Social History Type Response Smoking Status Never smoker entered on: 01/26/15 Sex Sex Representation Male (finding) EKG study * Event Display: ECG 12-Lead Authored Date: Please click on pdf link to open report * Event Display: ECG 12-Lead Authored Date: Ventricular Rate: 103 BPM Atrial Rate: 72 BPM QRS Duration: 88 ms Q-T Interval: 296 ms QTC Calculation(Bazett): 387 ms R [place]: 85 degrees T [place]: 42 degrees Atrial fibrillation with rapid ventricular response Abnormal ECG When compared with ECG of 05-Aug-2019 09:34, Atrial fibrillation has replaced Sinus rhythm Questionable change in QRS axis QT has shortened Confirmed by ALISSON GARCÍA MD ([id number]) on 06/25/2024 11:14:02 AM [place]: ALISSON GARCÍA MD Note * Monica Marie: PERFORM Event Display: Patient Education/Instruction Authored Date: Ambulatory Adult Visit Summary [facility] [address] [place] [address] Name: NATASHA VALENCIA : 1965?? Visit: 06/25/2024 10:18?? Ambulatory Visit Instructions ?? Your Care Team Primary Care Provider Elisa ARCHULETA, Keira Robles? This Visit Provider Sergei Gorman NP Your Diagnosis Atrial fibrillation status post cardioversion SOB (shortness of breath) Vitals Signs Pulse Rate: 77 bpm Height: 200 cm Systolic Blood Pressure: 121 mm Hg Weight: 148.5 kg Diastolic Blood Pressure: 84 mm Hg Body Mass Index:??37.13 kg/m2??Critical Oxygen Saturation: 100 % Body surface area: 2.87 What to do next Scheduled Follow-Up Appointments Friday 8:40 AM EST ?? With: Elisa ARCHULETA, Keira Robles Where: [address] [address]- Status: Pending Future Orders CBC w/ Differential - Once, *Est. 09/12/23, Single or Recurring Future Order?? Lipid Panel - Once, *Est. 09/12/23, Single or Recurring Future Order?? Comprehensive Metabolic Panel - Once, *Est. 09/12/23 due within 3 days, Within 3 Days?? PSA - Once, *Est. 09/12/23, Single or Recurring Future Order?? Trichomonas RNA, TMA, Ur/TP/Swab - Routine, Urethra, Once, 03/12/24 15:14:00 EDT, Order for Today, [facility], Urine?? Medications The list below reflects the information in our records and provided by you today along with any changes made during this visit. Please continue your medications until treatment is completed or stopped by your provider. If this is different from the information you have or there are other questions,please contact the prescribing provider. What How Much When Instructions Unchanged Ipratropium Nasal (ipratropium nasal 21 mcg/ inh spray) 2 spray(s) Nares, Both 3 times a day Unchanged Lisinopril (lisinopril 10 mg oral tablet) 1 tab(s) Oral Daily Unchanged Metoprolol (metoprolol 25 mg oral tablet, extended release) 1 tab(s) Oral Daily Unchanged rimegepant (Nurtec ODT 75 mg oral tablet, disintegrating) TAKE 1 TABLET BY MOUTH ONCE NEEDED FOR MIGRAINE. MAX DAILY DOSE: 1 TAB ?? Unchanged Rosuvastatin (rosuvastatin 40 mg oral tablet) 1 tab(s) Oral Daily Unchanged tadalafil (Cialis 10 mg oral tablet) 1 tab(s) Oral Daily 1 hour before sexual activity ?? Medications and Immunizations Administered Medications Given During Visit No medications given during this visit.?? Allergies (NKA means No Known Allergies) NKA Common Emergency Awareness Tips IS IT A STROKE? Act FAST and Check for these signs: FACE Does the face look uneven? ARM Does one arm drift down? SPEECH Does their speech sound strange? TIME Call at any sign of stroke ?? Heart Attack Signs Chest discomfort: Most heart attacks involve discomfort in the center of the chest and lasts more than a few minutes, or goes away and comes back. It can feel like uncomfortable pressure, squeezing, fullness or pain. Discomfort in upper body: Symptoms can include pain or discomfort in one or both arms, back, neck, jaw or stomach. Shortness of breath: With or without discomfort. Other signs: Breaking out in a cold sweat, nausea, or lightheaded. Remember, MINUTES DO MATTER. If you experience any of these heart attack warning signs, call to get immediate medical attention! ?? Smoking can increase your chances of developing chronic health problems and can cause harmful effects to other family members in your house. If you smoke, you are strongly encouraged to quit. Please call [facility] [facility] at [phone] or [phone] ([phone]) or log in to [email or web address] for referrals to smoking cessation programs. ?? The National Suicide Prevention Hotline is available 24/02 if you or someone you know needs to find a reason to keep living. By calling 4-558-458-jmro (7738) you'll be connected to a skilled, trained counselor at a crisis center in your area. [facility] Health Portal You can view and manage your care through the patient portal or by using a health care filiberto of your choosing. [facility] is a website that allows you to securely view your medical information including your hospital discharge summary, office visit summaries, medications and follow-up visits. You can also request appointments, renew medications, and request access to your medical information using a health care filiberto of your choosing, or just ask a question. You can enroll at [email or web address] or register during your next office visit. [facility], in keeping with [facility] guidance, no longer requires face masks for staff, patientsor visitors in most situations. Similiar to time spent indoors at other locations, there is the chance that you were exposed to repiratory viruses during your time with us (such as flu or COVID-19). If you develop symptoms concerning for a viral respiratory infection, please seek testing (and treatment if indicated) from your medical provider or home test kit. ?? Disclaimer: The information provided is of a general nature and is intended to be used in conjunction with the recommendations and advice of your health care practitioner. Every effort has been made to ensure that the information provided is accurate and complete at the time it is provided to you however, as your needs change, or, as new information becomes available, different or additional instructions may be required. ?? If you have questions, please consult with your primary care provider or pharmacist, as appropriate. This information is not intended to serve as substitution for assessment and evaluation by a qualified health care provider. If you do not have a primary care provider, you may find a [facility] provider by calling [facility] Link at [phone]. Patient Care team information Care Team Personnel Name: Jluis Bishop MD Position: [facility] Member Role: Lifetime Consulting Physician Address: [address] [place] [address] [facility]INASH [facility] [id number] Telecom: Name: Dajuan Fischera Margaret Position: [facility] PCO Associate Professional Member Role: PCP Address: [address] [place] [address]. [address] [place] [address]- Telecom: Care Team Related Persons Name: NELSON VALENCIA Name: DONN VALENCIA Name: SHAHNAZ VALENCIA Insurance Providers Guarantor name: NATASHA HERRICK CAMPUSBENSON Health Plan Information #: 1 Payer: [facility] [employer] P[employer] Member Number: [id number] Policy Number: NA Group Number: [id number] Health Plan Information #: 2 Payer: [facility] [employer] P[employer] Member Number: [id number] Policy Number: NA Group Number: NA
--- OUTSIDE RECORDS SUMMARY | 2024-07-14 01:36 | XMS_ITS | Continuity of Care Document ---
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 Name Role Phone Elisa ARCHULETA, Keira Robles Primary Care Dalton [id number]/19[facility] - 06/18/24 [facility] Adult [address] [place] [id number]- Encounter Type: Triage Allergies, Adverse Reactions, Alerts No Known Allergies Immunizations Given and Recorded Vaccine Date Status Refusal Reason zoster vaccine, inactivated 10/18/23 Recorded SARS-CoV-2 (COVID-19) mRNA-1273 vaccine 08/06/21 R ecorded SARS-CoV-2 (COVID-19) mRNA-1273 vaccine 10/18/20 R ecorded SARS-CoV-2 (COVID-19) mRNA-1273 vaccine 09/20/20 R ecorded tetanus/diphtheria/pertussis, acel(Tdap) 1 04/17/20 Given tetanus/diphtheria/pertussis, acel(Tdap) 12/05/17 Recorded tetanus/diphtheria/pertussis, acel(Tdap) 04/20/10 Given diphtheria-tetanus toxoids (DT) 08/04/97 Given 1Result Comment: [facility] [id number] Medications Cialis 10 mg oral tablet 1 tablet = 10 mg, By Mouth, Daily, 1 hour before sexual activity, # 5 tablet, 7 Refills, Maintenance, 03/12/24 3:08:00 PM EDT, Tablet, [facility]/pharmacy #[id number], Partial fill upon patient request if the prescription is for a schedule II opioid drug., 200, cm, 03/12/24 14:52:00 EDT, Height Start Date: 03/12/24 Status: Ordered Quantity: 5.0 Unit: tablet Repeat number: 8 ipratropium nasal 21 mcg/inh spray 2 sprays = 42 mcg, Nares, Both, 3 times a day, # 1 each, 5 Refills, Maintenance, 04/18/21 2:09:00 PMEDT, [place], [facility]/pharmacy #[id number], 2 sprays Nares, Both 3 times [...] obesity (BMI 35.0-39.9) with comorbidity Confirmed Active Social History Social History Type Response Smoking Status Never smoker entered on: 01/26/15 Sex Sex Representation Male (finding) Patient Care team information Care Team Personnel Name: Elisa ARCHULETA, Keira Robles Position: [facility] PCO Associate Professional Member Role: PCP Address: [address] [place] [address]. [address] [place] [address]- Telecom: Care Team Related Persons Name: NELSON VALENCIA Name: DONN VALENCIA Name: SHAHNAZ VALENCIA Insurance Providers Guarantor name: NATASHA VALENCIA Health Plan Information #: 1 Payer: JOSSELYN SANTOYO PPO Member Number: NA Policy Number: NA Group Number: NA
== END 2024-07-08 14:00 | disposition home or self-care (01) ==
PROVIDERS: PCP Student in an Organized Health Care Education/Training Program; Visit Provider Internal Medicine Cardiovascular Disease
PROC: (CPT 93312; principal; 2024-07-08 12:00)
DX: I48.0 Paroxysmal atrial fibrillation (principal); I10 Essential (primary) hypertension; E78.5 Hyperlipidemia, unspecified; Z79.01 Long term (current) use of anticoagulants; Z79.899 Other long term (current) drug therapy
CPT/HCPCS: 93312; 93005; J2003; J2250; J2704; Q9957

== ENCOUNTER → 2024-07-08 10:27 | Outpatient (BNV) | payer BC, SELFPAY | PROVIDERS: PCP Student in an Organized Health Care Education/Training Program; Visit Provider Internal Medicine Cardiovascular Disease | DX: I48.91 Unspecified atrial fibrillation (principal) | CPT/HCPCS: 76376; 92960; 93010; 93312 ==

== ENCOUNTER 2024-11-01 14:59 | Outpatient (AMB) | payer BC, SELFPAY ==
--- NOTE | 2024-11-01 15:02 | MHC.OFFVIS ---
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 He is status post cardioversion. He was referred for ablation but given significant improvement In symptoms and ejection fraction after cardioversion, ablation was not considered. He has been taken off the amiodarone in the past. He was taken off the Eliquis by the electrophysiology team. Previously was referred to sleep.? He was noticed to have mild sleep apnea.? He had decided to undergo weight loss rather than using CPAP. He has been doing well.? He denies any shortness of breath.? No palpitations.? Blood pressure control is good.? He has been off Lasix. Complained of 1 episode of chest pain few weeks ago. He said it was a like a pinching sensation on the right her chest at rest. [place] and [place] heavy weights her leg age and has no symptoms at work. 07/02/2023: He returns for follow-up. He has been doing well. Blood pressure in the office is elevated. He previously had sleep apnea but he is saying that he lost weight and was told that his sleep apnea is improved. He has been experiencing headaches in the morning every day. He is getting workup for that. No palpitations. EKG in the office is showing sinus rhythm. 06/30/2024: He is here for follow-up. He has been feeling fatigued for 5 weeks. He apparently went to his primary care physician and EKG confirmed atrial fibrillation he was sent back to us. EKG in the office is showing atrial fibrillation. He is getting tired easily. Denying any shortness of breath. No PND or orthopnea. Currently not on anticoagulation. 11/01/2024: Byron is here after ablation for atrial fibrillation. This was done in August. He has been doing fine. His blood pressure is significantly elevated. He is saying that he has been taking Lasix but misses it on few days. He misses yesterday and did not take it today because he was coming for appointment. He is on lisinopril 10 mg daily. On metoprolol succinate 50 mg twice a day and continues to be on amiodarone. We discussed about stopping the amiodarone. [facility] Medical History Hyperlipidemia Hypertension Surgical History History of cardioversion (01/26/19) History of vasectomy (01/13/14) History of colonoscopy History of nasal polypectomy Hx of cholecystectomy (07/16/04) Hx of arthroscopy of knee Family History Father Heart failure Mother No problems noted. Brother Cardiomyopathy Social History Alcohol intake: never Patient Tobacco Use Status: Never used Tobacco Review of Systems Const Denies chills, Denies fatigue, Denies fever(s), Denies frequent falls, Denies weakness, Denies weight gain and Denies weight loss ENT Denies dizziness Card Denies chest pain, Denies leg edema, Denies lightheadedness, Denies palpitations, Denies dyspnea and Denies dyspnea on exertion Resp Denies cough, Denies dyspnea and Denies dyspnea on exertion GI Denies hematochezia Musc Denies abnormal gait, Denies muscle weakness, Denies numbness, Denies radiating pain into limb and Denies tingling Neuro Denies abnormal gait, Denies dizziness, Denies frequent falls, Denies numbness, Denies tingling and Denies weakness Endo Denies fatigue and Denies palpitations Physical Exam Vital Signs: Last Vital Signs Pulse 59 11/01/24 15:04 BP 150/90 H 11/01/24 15:04 BMI result Body Mass Index 38.3 GENERAL APPEARANCE: in no acute distress, pleasant. NECK: no carotid bruit, no jugular venous distention. SKIN: no suspicious lesions, warm and dry. HEART: no murmurs, regular rate and rhythm. LUNGS: clear to auscultation bilaterally. ABDOMEN: soft, nontender. EXTREMITIES: no edema. PERIPHERAL PULSES: equal. NEUROLOGIC: No gross deficits, AAO X 3 Office Procedures EKG Details: Sinus bradycardia 59 beats per minute, otherwise normal ECG, QTC 427 milliseconds. [id number], Complete Assessment & Plan Assessment & Plan (1) Hypertension: Code(s): I10 - Essential (primary) hypertension Category: Medical (2) PAF (paroxysmal atrial fibrillation): Code(s): I48.0 - Paroxysmal atrial fibrillation Category: Medical (3) Cardiomyopathy: Code(s): I42.9 - Cardiomyopathy, unspecified Category: Medical Plan [age] gentleman with tachycardia induced cardiomyopathy now status post cardioversion and ablation for atrial fibrillation. Stop the amiodarone. Continue Eliquis 5 mg twice a day. I have advised him to take Lasix daily. He is probably salt sensitive and holds more fluid and Lasix may improve his blood pressure. Increase lisinopril to 20 mg daily. He will come back in 10 days for blood pressure check. If blood pressure is still elevated we will increase the lisinopril to 40 mg daily. Check echocardiogram to assess LV function. Thank you for allowing me to participate in the care of your patient. Please feel free to contact me if you have any questions. Orders: Orders [facility] Today I42.9 - Cardiomyopathy, unspecified Coding Level of Care Code Est Pt Level 4 (84423) Complex EM visit Add On G2211 Diagnoses Hypertension I10 PAF (paroxysmal atrial fibrillation) I48.0 Cardiomyopathy I42.9 CPT Codes EKG - CPT: 47972-Zvxigymkmagmkyjvh, Complete ([id number])
[2024-11-01 15:04] VITALS: BP 150/90; PULSE 59; BMI 38.3
--- OUTSIDE RECORDS SUMMARY | 2024-11-01 16:55 | XMS_ITS ---
Author Name [facility] Organization Unknown Care Team Organization Name Specialty Phone Email Start Date End [facility] 06/18/2024
== END 2024-11-01 15:31 | disposition home or self-care (01) ==
LOC: HO.HCS 15:00
PROVIDERS: PCP Student in an Organized Health Care Education/Training Program; Visit Provider Internal Medicine Cardiovascular Disease
DX: I10 Essential (primary) hypertension (principal); I48.0 Paroxysmal atrial fibrillation; I42.9 Cardiomyopathy, unspecified
CPT/HCPCS: 93010; 99214

== ENCOUNTER → 2024-11-01 14:59 | Outpatient (BNVA) | payer BC, SELFPAY | PROVIDERS: PCP Student in an Organized Health Care Education/Training Program; Visit Provider Internal Medicine Cardiovascular Disease | DX: I10 Essential (primary) hypertension (principal); I48.0 Paroxysmal atrial fibrillation; I42.9 Cardiomyopathy, unspecified; Z79.899 Other long term (current) drug therapy | CPT/HCPCS: 93005 ==

== ENCOUNTER 2025-01-10 15:24 | Outpatient (AMB) | payer BC, SELFPAY ==
--- NOTE | 2025-01-10 15:27 | A.OFFVIS_ITS ---
Vital Signs 01/10/25 15:33 Height 6 ft 7 in Weight 334 lb 10.587 oz BMI 37.7 BP 150/72 H Blood Pressure Location Lt brachial Position Sitting Pulse 73 Pulse Source Pulse Oximeter Intake Visit Reasons: 3 mth f/up-echo Intake Note: 3 mth f.up-echo Caramel Maker Required: No Accompanied by: Self / Same As Patient Allergies No Known Allergies [No Known Allergies*] Allergy (Verified 07/08/24 10:59) Medication List - Last Reconciled 01/10/25 by Jluis Bishop MD apixaban 5 mg PO BID furosemide (Lasix) 20 mg PO DAILY lisinopril 20 mg (2 x 10 mg) PO DAILY metoprolol succinate ER 50 mg (2 x 25 mg) PO DAILY rosuvastatin 40 mg PO DAILY 90 days sildenafil 100 mg PO DAILY PRN HPI Comments Details: 59-year-old gentleman with the paroxysmal atrial fibrillation and h/o tachycardia induced cardiomyopathy. He is status post cardioversion. He was referred for ablation but given significant improvement In symptoms and ejection fraction after cardioversion, ablation was not considered. He has been taken off the amiodarone in the past. He was taken off the Eliquis by the electrophysiology team. Previously was referred to sleep.? He was noticed to have mild sleep apnea.? He had decided to undergo weight loss rather than using CPAP. He has been doing well.? He denies any shortness of breath.? No palpitations.? Blood pressure control is good.? He has been off Lasix. Complained of 1 episode of chest pain few weeks ago. He said it was a like a pinching sensation on the right her chest at rest. He works [place] the [place] and lifts heavy weights her leg age and has no symptoms at work. 07/02/2023: He returns for follow-up. He has been doing well. Blood pressure in the office is elevated. He previously had sleep apnea but he is saying that he lost weight and was told that his sleep apnea is improved. He has been experiencing headaches in the morning every day. He is getting workup for that. No palpitations. EKG in the office is showing sinus rhythm. 06/30/2024: He is here for follow-up. He has been feeling fatigued for 5 weeks. He apparently went to his primary care physician and EKG confirmed atrial fibrillation he was sent back to us. EKG in the office is showing atrial fibrillation. He is getting tired easily. Denying any shortness of breath. No PND or orthopnea. Currently not on anticoagulation. 11/01/2024: Byron is here after ablation for atrial fibrillation. This was done in August. He has been doing fine. His blood pressure is significantly elevated. He is saying that he has been taking Lasix but misses it on few days. He misses yesterday and did not take it today because he was coming for appointment. He is on lisinopril 10 mg daily. On metoprolol succinate 50 mg twice a day and continues to be on amiodarone. We discussed about stopping the amiodarone. 01/10/25: Here for f/u. No symptoms. Blood pressure continues to be elevated. [facility] Medical History Hyperlipidemia Hypertension Surgical History History of cardioversion (01/26/19) History of vasectomy (01/13/14) History of colonoscopy History of nasal polypectomy Hx of cholecystectomy (07/16/04) Hx of arthroscopy of knee Family History Father Heart failure Mother No problems noted. Brother Cardiomyopathy Social History Alcohol intake: never Patient Tobacco Use Status: Never used Tobacco Review of Systems Const Denies chills, Denies fatigue, Denies fever(s), Denies frequent falls, Denies weakness, Denies weight gain and Denies weight loss ENT Denies dizziness Card Denies chest pain, Denies leg edema, Denies lightheadedness, Denies palpitations, Denies dyspnea and Denies dyspnea on exertion Resp Denies cough, Denies dyspnea and Denies dyspnea on exertion GI Denies hematochezia Musc Denies abnormal gait, Denies muscle weakness, Denies numbness, Denies radiating pain into limb and Denies tingling Neuro Denies abnormal gait, Denies dizziness, Denies frequent falls, Denies numbness, Denies tingling and Denies weakness Endo Denies fatigue and Denies palpitations Physical Exam Vital Signs: Last Vital Signs Pulse 73 01/10/25 15:33 BP 150/72 H 01/10/25 15:33 BMI result Body Mass Index 37.7 GENERAL APPEARANCE: in no acute distress, pleasant. NECK: no carotid bruit, no jugular venous distention. SKIN: no suspicious lesions, warm and dry. HEART: no murmurs, regular rate and rhythm. LUNGS: clear to auscultation bilaterally. ABDOMEN: soft, nontender. EXTREMITIES: no edema. PERIPHERAL PULSES: equal. NEUROLOGIC: No gross deficits, AAO X 3 Assessment & Plan Assessment & Plan (1) Hypertension: Code(s): I10 - Essential (primary) hypertension Category: Medical (2) PAF (paroxysmal atrial fibrillation): Code(s): I48.0 - Paroxysmal atrial fibrillation Category: Medical (3) Cardiomyopathy: Code(s): I42.9 - Cardiomyopathy, unspecified Category: Medical Plan [age] gentleman with tachycardia induced cardiomyopathy now status post cardioversion and ablation for atrial fibrillation. He is off the amiodarone. Continue Eliquis 5 mg twice a day. Blood pressure significantly elevated. Adding Amlodipine 5 mg daily. He will see us back in 3 months. Thank you for allowing me to participate in the care of your patient. Please feel free to contact me if you have any questions. Medications: New amlodipine 5 mg PO DAILY 60 tabs 3RF I10 - Essential (primary) hypertension Coding Level of Care Code Est Pt Level 4 (17289) Complex EM visit Add On G2211 Diagnoses Hypertension I10 PAF (paroxysmal atrial fibrillation) I48.0 Cardiomyopathy I42.9
[2025-01-10 15:33] VITALS: BP 150/72; PULSE 73; BMI 37.7
== END 2025-01-10 15:52 | disposition home or self-care (01) ==
LOC: HO.HCS 15:24
PROVIDERS: PCP Student in an Organized Health Care Education/Training Program; Visit Provider Internal Medicine Cardiovascular Disease
DX: I10 Essential (primary) hypertension (principal); I48.0 Paroxysmal atrial fibrillation; I42.9 Cardiomyopathy, unspecified
CPT/HCPCS: 99214

== ENCOUNTER → 2025-01-10 15:24 | Outpatient (BNVA) | payer BC, SELFPAY | PROVIDERS: PCP Student in an Organized Health Care Education/Training Program; Visit Provider Internal Medicine Cardiovascular Disease ==

== ENCOUNTER 2025-04-13 14:28 | Outpatient (AMB) | payer BC, SELFPAY ==
--- OUTSIDE RECORDS SUMMARY | 2025-04-09 23:59 | XMS_ITS | Continuity of Care Document ---
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 Role Phone Elisa ARCHULETA, Keira Robles Primary Care Dalton acosta [id number] Date(s): 03/10/25 - 04/09/[address] [address]- Encounter Type: Triage Allergies, Adverse Reactions, Alerts No Known Allergies Immunizations Given and Recorded Vaccine Date Status Refusal Reason influenza virus vaccine, inactivated 1 09/15/24 Gi soledad zoster vaccine, inactivated 10/18/23 Recorded SARS-CoV-2 (COVID-19) mRNA-1273 vaccine 08/06/21 R ecorded SARS-CoV-2 (COVID-19) mRNA-1273 vaccine 10/18/20 R ecorded SARS-CoV-2 (COVID-19) mRNA-1273 vaccine 09/20/20 R ecorded tetanus/diphtheria/pertussis, acel(Tdap) 2 04/17/20 Given tetanus/diphtheria/pertussis, acel(Tdap) 12/05/17 Recorded tetanus/diphtheria/pertussis, acel(Tdap) 04/20/10 Given diphtheria-tetanus toxoids (DT) 08/04/97 Given 1Result Comment: [facility]# [id number] 2Result Comment: [facility] [id number] Medications Eliquis 5 mg oral tablet TAKE 1 TABLET BY MOUTH TWICE A DAY Start Date: 08/20/24 Status: Ordered Medication Dispense Status: Completed Total Allowed Fills: 1 Fills Dispensed: 0 ipratropium nasal 21 mcg/inh spray See Instructions, SPRAY 2 SPRAYS INTO EACH NOSTRIL 3 TIMES A DAY, # 90 Unknown, 1 Refills, Maintenance, 03/10/25 6:09:00 AM EDT, [id number], 90, SPRAY 2 SPRAYS INTO EACH NOSTRIL 3 TIMES A DAY, 197, cm, 09/15/24 9:40:00 EST, Height, 150.1, kg, 08/20/24 7:22:00 EST, Dry Weight Start Date: 03/10/25 Status: Ordered Medication Dispense Status: Completed Quantity: 90.0 Unit: Unknown Total Allowed Fills: 1 Fills Dispensed: 0 lisinopril 20 mg oral tablet 1, tablet, By Mouth, Daily, # 90 tablet, Refills 1, Maintenance, 12/14/24 1:17:00 AM EDT, Route to Pharmacy Electronically, [id number], 197, cm, 09/15/24 9:40:00 EST, Height, 150.1, kg, 08/20/24 7:22:00 EST, Dry Weight Start Date: 12/14/24 Status: Ordered Medication Dispense Status: Completed Quantity: 90.0 Unit: tablet Total Allowed Fills: 1 Fills Dispensed: 0 metoprolol 25 mg oral tablet, extended release 25 mg, 1, tablet, By Mouth, 2 times a day, # 30 tablet, Refills 0, Maintenance, 01/29/19 12:57:03 PMEDT Start Date: 01/29/19 Status: Ordered Medication Dispense Status: Completed Quantity: 30.0 Unit: tablet Total Allowed Fills: 1 Fills Dispensed: 0 rosuvastatin 40 mg oral tablet 1 tablet = 40 mg, By Mouth, Daily, # 90 tablet, 0 Refills, Maintenance, 09/12/23 10:00:00 AM EST, Tablet, Partial fill upon patient request if the prescription is for a schedule II opioid drug. Start Date: 09/12/23 Status: Ordered Medication Dispense Status: Completed Quantity: 90.0 Unit: tablet Total Allowed Fills: 1 Fills Dispensed: 0 Problem List Condition Confirmation Course Effective Dates Status H ealth Status Informant Atrial fibrillation status post cardioversion Confirmed Active Right epiretinal membrane Confirmed 03/04/17 Active Essential (primary) hypertension Confirmed 12/23/17 Active Hyperlipidemia NOS Confirmed Active Migraines Confirmed Active Obstructive sleep apnea AHI 28.2, O2 80% Confirmed 11/11/18 Active Screening for prostate cancer Confirmed Active Severe obesity (BMI 35.0-39.9) with comorbidity Confirmed Active Patient Care team information Care Team Personnel Name: Jluis Bishop MD Position: [facility] Cardiology MD Member Role: Lifetime Consulting Physician Address: [address] [place] [address] [place] [address]- Telecom: Name: Keira Fischer Position: [facility] PCO Associate Professional Member Role: PCP Address: [address] [place] [address]. [address] [place] [address]- Telecom: Care Team Related Persons Name: NELSON VALENCIA Name: DONN VALENCIA Name: SHAHNAZ VALENCIA Insurance Providers Guarantor name: NATASHA VALENCIA Health [facility] Information #: 1 Payer: [employer] PPO Payer Identifier: NA Member Number: [id number] Group Number: [id number] Subscriber Identifier: NA Relationship to Subscriber: self Coverage Type: BLUE CROSS/BLUE SHIELD Coverage Verification Date: NA Telecom: NA Address: NA
[2025-04-13 14:34] VITALS: BP 130/82; PULSE 72; BMI 37.9
--- NOTE | 2025-04-13 14:34 | MHC.OFFVIS ---
Vital Signs 04/13/25 14:34 Height 6 ft 7 in Weight 336 lb 13.861 oz BMI 37.9 BP 130/82 Blood Pressure Location Lt brachial Position Left Lateral Pulse 72 Pulse Source Pulse Oximeter Intake Visit Reasons: 3mth f/up-km pt Accompanied by: Self / Same As Patient Allergies No Known Allergies (No Known Allergies*) Allergy (Verified 04/13/25 14:38) Medication List - Last Reconciled 04/13/25 by Nish Zabala NP apixaban 5 mg PO BID furosemide 20 mg PO DAILY lisinopril 20 mg (2 x 10 mg) PO DAILY metoprolol succinate ER 25 mg PO DAILY rosuvastatin 40 mg PO DAILY sildenafil 100 mg PO DAILY PRN HPI Comments Details: This is a 59-year-old male patient who is coming in for a follow-up visit. Patient with a history of hypertension, hyperlipidemia and atrial fibrillation induced cardiomyopathy status post cardioversion and ablation. Patient has been doing very well since ablation and is off his amiodarone. At his last visit with Dr. Bishop, patient had elevated blood pressures for which patient was started on amlodipine. Patient states that he has been doing well overall without any exertional symptoms of chest pain, shortness of breath, palpitations, dizziness, orthopnea, PND, leg edema, presyncope, or syncope. Patient is reporting compliance with all his medications. [facility] Medical History Hyperlipidemia Hypertension Surgical History History of cardioversion (01/26/19) History of vasectomy (01/13/14) History of colonoscopy History of nasal polypectomy Hx of cholecystectomy (07/16/04) Hx of arthroscopy of knee Family History Father Heart failure Mother No problems noted. Brother Cardiomyopathy Social History Alcohol intake: never Patient Tobacco Use Status: Never used Tobacco Review of Systems Const Denies daytime sleepiness, Denies difficulty sleeping, Denies snoring, Denies stops breathing during sleep and Denies weakness Card Denies chest pain, Denies rapid heart rate, Denies irregular heart rhythm, Denies claudication, Denies leg edema, Denies lightheadedness, Denies palpitations, Denies dyspnea, Denies dyspnea on exertion, Denies orthopnea, Denies paroxysmal nocturnal dyspnea and Denies slow heart rate Resp Denies cough, Denies dyspnea, Denies dyspnea on exertion and Denies snoring GI Reports no additional complaints, Denies hematochezia, Denies change in stool character and Denies dyspepsia Musc Denies abnormal gait, Denies muscle weakness and Denies numbness Neuro Denies abnormal gait, Denies numbness and Denies weakness Endo Denies palpitations Physical Exam Vital Signs: Last Vital Signs Pulse 72 04/13/25 14:34 BP 130/82 04/13/25 14:34 BMI result Body Mass Index 37.9 Const General: cooperative, healthy appearing, comfortable and no acute distress Orientation/consciousness: patient oriented x3 HEENT Head: Yes normal to inspection Neck Neck: Yes normal visual inspection, Yes trachea midline and Yes supple Chest Chest palpation & inspection: normal inspection of the chest Resp Effort & Inspection: normal respiratory effort Auscultation: clear to auscultation bilaterally, no crackles, no rales, no rhonchi and no wheezes Cardio Jugular venous distension: no JVD Palpation: normal PMI Rate: regular rate Rhythm: regular rhythm Heart sounds: S1 normal heart sound present, S2 normal heart sound present, no click, no gallops, no murmurs and no rubs Peripheral pulses: Peripheral pulses 2+ throughout GI Inspection: Yes normal to inspection Palpation (GI): Soft to palpation Auscultation: normal bowel sounds Skin General skin exam: no rashes or lesions noted Neuro General: patient oriented x3 Extrem General: Yes normal to inspection, No no pedal edema and No calf tenderness Psych Appearance: grossly normal Mental Status: mental status grossly normal Speech and movement: Normal speech and movement present Assessment & Plan Assessment & Plan (1) PAF (paroxysmal atrial fibrillation): Code(s): I48.0 - Paroxysmal atrial fibrillation Category: Medical Plan: History of AFib status post cardioversion and catheter ablation. No reports signs of recurrence. Continue Eliquis for full anticoagulation therapy. No reported signs of bleeding. Continue metoprolol for rate control. We will periodically check patient's lab. (2) Cardiomyopathy: Code(s): I42.9 - Cardiomyopathy, unspecified Category: Medical Plan: 07/08/2024-transesophageal echo study had shown a moderate to severely decreased LV systolic function with the ejection fraction between 25-30% and moderate global hypokinesis, with no evidence of thrombus in the MEGAN. This was thought to be due to his AFib and elevated heart rates. Patient had plans for repeat echo however this is not completed. We will contact centralized scheduling to schedule this. Patient is otherwise clinically stable and euvolemic. Continue low-dose Lasix therapy. Advised signs and symptoms of heart failure to watch for. (3) Hypertension: Code(s): I10 - Essential (primary) hypertension Category: Medical Plan: Blood pressure today is well-controlled. Continue current regimen. Advised monitoring blood pressures at home with a goal less than 130/80. Advised low-salt diet. (4) Hyperlipidemia: Code(s): E78.5 - Hyperlipidemia, unspecified Category: Medical Plan: Continue statin therapy with an LDL goal less than 100. Advised heart healthy diet, regular exercise, med compliance, and management of vascular risk factors. Follow-up in 6 months. In the interim, patient will call the office with any concerns or change in symptoms. This note was generated using voice recognition software. While every effort has been made to ensure accuracy and proper envelope folder, there may be occasional errors that could affect the content or meaning of the described symptoms. Medications: New amlodipine 5 mg PO DAILY 90 tabs 3RF Coding Level of Care Code Est Pt Level 4 (74738) Complex EM visit Add On G2211 Diagnoses PAF (paroxysmal atrial fibrillation) I48.0 Cardiomyopathy I42.9 Hypertension I10 Hyperlipidemia E78.5 Time Spent (min) 31 Comment Time spent in reviewing the chart, test results, assessment, counseling and documentation.
--- OUTSIDE RECORDS SUMMARY | 2025-04-13 17:45 | XMS_ITS ---
Author Name [facility] Organization Unknown Care Team Organization Name Specialty Phone Email Start Date End [facility] 06/18/2024 04/03/2025
== END 2025-04-13 14:54 | disposition home or self-care (01) ==
PROVIDERS: PCP Student in an Organized Health Care Education/Training Program
DX: I48.0 Paroxysmal atrial fibrillation (principal); I42.9 Cardiomyopathy, unspecified; I10 Essential (primary) hypertension; E78.5 Hyperlipidemia, unspecified
CPT/HCPCS: 99214